=== PATIENT | male | born 1960 | race Caucasian/White ===

== ENCOUNTER 2020-01-28 11:22 | Emergency (ER) | payer MEDICAID ==
[~2020-01-28] VITALS: Ht 185.4 cm; Wt 57.2 kg
[~2020-01-28 11:22] MED LIST: ACET650S26 GT; BISA10SU11 RC; DOCU50LI GT; GABA-534 GT; LEVE100S GT; MAGN400O6 GT; MULT-447 GT; NA P133E RC; VALP250S22 GT
[2020-01-28] MEDS ORDERED: ACETAMINOPHEN 650 MG/SUPP.RECT RC ONE ×2 (11:39→12:30)
[2020-01-28 11:56] LABS: BILIRUBIN,URINE SMALL (NEGATIVE); BLOOD, URINE Small Ery/uL (NEGATIVE); KETONES,URINE Negative (NEGATIVE); LEUKOCYTE ESTERASE ,URINE Negative (NEGATIVE); NITRITE, URINE Negative (NEGATIVE); PH,URINE 5.5 (5.0-8.0); PROTEIN,URINE Trace mg/dl (NEGATIVE); UGLUCOSE Negative (NEGATIVE)
--- NOTE | 2020-01-28 11:56 | NUR ---
RON[facility] FROM [facility] TO ER BED 5. AAOX1. NOT IN RESP DISTRESS. BED BOUND. NON VERBAL. BROUGHT IN FOR FEVER. PER PA REPORT, PT HAVE A TEMP OF 103.4 AT THE FACILITY, RECTAL TEMP UPON ASSESSMENT 104.0 PT IS ALSO REPORT TO BE PRESENTING AGGRESSIVE BEHAVIOR MANIFESTED BY STRIKING OUT. PT IS PLACED ON 2 POINTS RESTRAINT TO PREVENT INJURY. IV LINE OBTAINED ON L AC18G. BLOOD DRAWN. URINE COLLECTED VIA STRAIGHT CATH W/ STRICT STERILE TECHNIQUE. WAS AT BEDSIDE FOR EVAL. ORDERS RECEIVED NOTED AND CARRIED OUT. PT ON MONITOR.
[2020-01-28 11:57] LABS: BASOPHILS # (AUTO) 0.1 /CMM (0.0-0.2); HEMATOCRIT 45 % (39-51); HEMOGLOBIN 14.9 g/dL (13.5-17.5); LYMPHOCYTES # (AUTO) 1.8 /CMM (0.8-4.8); LYMPHOCYTES % (AUTO) 24.4 % (20.0-44.0); MEAN CORPUSCULAR HGB CONC 34 g/dl (31.0-36.0); MEAN CORPUSCULAR VOLUME 92 fL (80-96); MONOCYTES # (AUTO) 1.1 /CMM (0.1-1.30); MONOCYTES % (AUTO) 15.2 % (2.0-12.0); NEUTROPHILS # (AUTO) 4.3 /CMM (1.8-8.9); NEUTROPHILS % (AUTO) 59.4 % (43.0-81.0); PLATELET COUNT (AUTO) 145 /CMM (150-450); RED BLOOD CELL COUNT(AUTO) 4.85 MIL/uL (4.5-6.0); WHITE BLOOD COUNT (AUTO) 7.3 K/uL (4.3-11.0)
[2020-01-28 12:01] LABS: APPEARANCE,URINE SLIGHTLY CLOUDY (CLEAR); COLOR,URINE DARK YELLOW (YELLOW)
[2020-01-28 12:08] LABS: BACTERIA,URINE Rare /HPF (None Seen); CALCIUM, SERUM 8.2 mg/dL (8.5-10.1); CARBON DIOXIDE 32 mmol/L (21-32); CHLORIDE 109 mmol/L (98-107); CREATININE 1.1 mg/dL (0.6-1.3); GLUCOSE 114 mg/dL (74-106); POTASSIUM 3.4 mmol/L (3.5-5.1); SODIUM SERUM 146 mmol/L (136-145); SQUAMOUS EPITHELIAL CELL,UR Few /HPF (None Seen); UREA NITROGEN, BLOOD 17 mg/dL (7-18)
[2020-01-28 12:21] LABS: ALANINE AMINOTRANSFERASE 39 U/L (12-78); ALBUMIN 3.1 g/dL (3.4-5.0); ALKALINE PHOSPHATASE 75 U/L (46-116); ASPARTATE AMINOTRANSFERASE 38 U/L (15-37); B-TYPE NATRIURETIC PEPTIDE 686 PG/ML (0-125); BILIRUBIN,DIRECT 0.1 mg/dL (0.0-0.2); BILIRUBIN,TOTAL 0.5 mg/dL (0.2-1.0); TOTAL PROTEIN, SERUM 7.5 g/dL (6.4-8.2)
[2020-01-28] MEDS ORDERED: NUT.237L25 GT (12:24)
--- NOTE | 2020-01-28 12:50 | NUR ---
CALLED DR. LIU'S OFFICE, NO ANSWER. CALLED CELL PHONE, NO ANSWER. WILL CALL AGAIN IN 15 MINUTES.
[2020-01-28] MEDS ORDERED: VANCOMYCIN 1 GM in IV D5W 250 ML IV ONE (13:00)
[2020-01-28] MEDS ORDERED: PIPERACILLIN /TAZOBACTAM 3.375 G in IV D5W 50 ML IV ONE (13:00)
[2020-01-28 13:01] LABS: BAND % (MANUAL) 10 % (0.0-5.0); LYMPHOCYTES % (MANUAL) 13 % (16-48); MONOCYTES % (MANUAL) 18 % (0-11.0); NEUTROPHILS % (MANUAL) 59 (42-76)
--- NOTE | 2020-01-28 14:12 | NUR ---
PAGED [facility].
[2020-01-28] MEDS ORDERED: IV NS 0.9% 1,000 ML IV ONE (15:00)
--- NOTE | 2020-01-28 15:03 | NUR ---
[facility], PER PT IS GOOD TO GO BACK AND SELF ISOLATE.
--- NOTE | 2020-01-28 15:13 | NUR ---
VERBAL ORDER TO GIVE 1L NS VIA IV RECEIVED FROM DR. MIR, NOTED AND CARRIED OUT
[2020-01-28] MEDS: IV NS 0.9% 500 ML BAG IV ONE ×2 (15:22→15:32)
--- NOTE | 2020-01-28 15:32 | NUR ---
500NS X 2 BAG BOLUS IS DUPLICATE ORDER
--- NOTE | 2020-01-28 15:41 | NUR ---
CALLED [facility] FOR TRANSPORT TO [facility]. ETA 20 MINUTES.
--- NOTE | 2020-01-28 16:20 | NUR ---
[facility] AT BEDSIDE FOR [facility]. REPORT GIVEN
--- NOTE | 2020-01-28 16:27 | NUR ---
AMBULANCE LEFT ON GURNEY WITH 2 AMBULACE STAFF. PT IS IN STABLE CONDITION FOR TRANSPORT.
[2020-01-28 16:28] VITALS: BP 130/73
== END 2020-01-28 16:28 | disposition home or self-care (01) ==
LOC: ER 11:25
DX: R50.9 Fever, unspecified (principal); I10 Essential (primary) hypertension; Z86.73 Personal history of transient ischemic attack (TIA), and cerebral infarction without residual deficits; Z93.1 Gastrostomy status; Z79.899 Other long term (current) drug therapy
CPT/HCPCS: 36415; 71045; 80048; 80076; 81001; 82962; 83605 ×2; 83880; 84145; 84484; 85025; 85730; 87040 ×2; 87086; 93005; 96365; 96367; 99285; J2543; J3370; J7030; J7060 ×2; 81000-TC